=== PATIENT | male | born 1945 | race Two or more races ===

== ENCOUNTER → 2022-07-24 | Outpatient (CLI) | payer OTHER | END | disposition home or self-care (01) | LOC: RAH 09:22 | PROVIDERS: ATTEND Internal Medicine | DX: S93.602A Unspecified sprain of left foot, initial encounter (principal); M19.072 Primary osteoarthritis, left ankle and foot; M25.472 Effusion, left ankle; M25.475 Effusion, left foot; X58.XXXA Exposure to other specified factors, initial encounter; Y93.89 Activity, other specified; Y92.89 Other specified places as the place of occurrence of the external cause; Y99.8 Other external cause status | CPT/HCPCS: 73600; 73620 ==

== ENCOUNTER → 2023-03-12 | Outpatient (CLI) | payer OTHER | END | disposition home or self-care (01) | LOC: RAH 09:47 | PROVIDERS: ATTEND Internal Medicine | DX: M47.815 Spondylosis without myelopathy or radiculopathy, thoracolumbar region (principal); R04.2 Hemoptysis | CPT/HCPCS: 71046 ==